=== PATIENT | female | born 1950 | race Caucasian/White ===

== ENCOUNTER 2019-05-19 12:15 | Emergency (ER) | payer BC, MEDICAID ==
[~2019-05-19] VITALS: Ht 157.5 cm; Wt 75.0 kg
[2019-05-19 12:22] VITALS: BP 110/76
[2019-05-19] MEDS ORDERED: NACL 0.9% 500 ML IV ONE (14:00)
[2019-05-19 14:51] LABS: ANION GAP 12.5 (8-16); CARBON DIOXIDE 28.2 mmol/L (21-32); CREATININE 0.8 mg/dL (0.6-1.3); POTASSIUM 3.7 mmol/L (3.5-5.1)
[2019-05-19 14:52] LABS: BASOPHILS % (AUTO) 0.9 % (0.0-2.0); EOSINOPHILS # (AUTO) 0.2 K/uL (0-0.4); EOSINOPHILS % (AUTO) 3.9 % (0.0-4.0); HEMATOCRIT 37.7 % (36-48); HEMOGLOBIN 12.2 g/dL (12.0-16.0); LYMPHOCYTES % (AUTO) 18.3 % (20.5-51.1); MEAN CORPUSCULAR HEMOGLOBIN 29 pg (27-31); MEAN CORPUSCULAR HGB CONC 32 g/dL (33-37); MEAN CORPUSCULAR VOLUME 89.3 fL (80-94); MONOCYTES # (AUTO) 0.3 K/uL (0.8-1.0); MONOCYTES % (AUTO) 6.2 % (1.7-9.3); NEUTROPHILS # (AUTO) 3.9 K/uL (1.8-7.7); NEUTROPHILS % (AUTO) 70.7 % (42.2-75.2); PLATELET COUNT (AUTO) 166 K/uL (140-450); RED BLOOD CELL COUNT(AUTO) 4.22 MIL/uL (4.20-5.40); RED CELL DISTRIBUTION WIDTH 14.1 % (11.6-13.7); WHITE BLOOD COUNT (AUTO) 5.5 K/uL (4.8-10.8)
[2019-05-19 15:05] LABS: ALBUMIN 3.8 g/dL (3.4-5.0); TOTAL BILIRUBIN 0.7 mg/dL (0.0-1.0)
[2019-05-19 15:08] VITALS: BP 120/79
== END 2019-05-19 15:08 | disposition home or self-care (01) ==
LOC: MED 12:15
DX: R10.84 Generalized abdominal pain (principal); I10 Essential (primary) hypertension; M79.10 Myalgia, unspecified site; Z88.0 Allergy status to penicillin; Z85.43 Personal history of malignant neoplasm of ovary
CPT/HCPCS: 36415; 74022; 80053; 85025; 99284; J7030

== ENCOUNTER 2019-06-16 13:15 | Emergency (ER) | payer BC, MEDICAID ==
[~2019-06-16] VITALS: Ht 154.9 cm; Wt 74.5 kg
[2019-06-16 13:17] VITALS: BP 150/85
--- NOTE | 2019-06-16 13:30 | NUR ---
PT AMB TO BED 8.
--- NOTE | 2019-06-16 13:33 | NUR ---
PA Grier evaluating patient at bedside.
--- NOTE | 2019-06-16 13:37 | NUR ---
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 L THUMB NAIL IS SLIGHTLY DETACHED WITH BLEEDING THAT HAS CLOTTED, +CMS. PT AWAKE AND ALERT, SKIN NORMAL COLOR WARM AND DRY, RR EVEN AND UNLABORED. DENIES KNOWN MED HX, DENIES RX.
[2019-06-16] MEDS ORDERED: LIDOCAINE MPF 1% 10 MG/ML VIAL INJ ONE (13:40)
[2019-06-16] MEDS ORDERED: ONDANSETRON 4 MG ODT PO ONE (13:40)
[2019-06-16] MEDS ORDERED: HYDROcodone/APAP 5/325 MG 1 TAB TAB PO ONE (13:40)
[2019-06-16] MEDS ORDERED: LIDOCAINE MPF 1% 5 ML ONE (13:50)
--- NOTE | 2019-06-16 14:47 | NUR ---
APPLIED DRESSING TO LEFT THUMB WITHOUT ANY ISSUES
[2019-06-16 14:51] VITALS: BP 130/79
--- NOTE | 2019-06-16 14:51 | NUR ---
Patient discharged with v/s stable. Written and verbal after care instructions given and explained. Patient alert, oriented and verbalized understanding of instructions. Ambulatory with steady gait with cane. All questions addressed prior to discharge. ID band removed. Patient advised to follow up with PMD. Rx of IBUPROFEN, NORCO given. Patient educated on indication of medication including possible reaction and side effects. Opportunity to ask questions provided and answered.
== END 2019-06-16 14:51 | disposition home or self-care (01) ==
LOC: MED 13:15
DX: S61.102A Unspecified open wound of left thumb with damage to nail, initial encounter (principal); I10 Essential (primary) hypertension; Z88.0 Allergy status to penicillin; W22.8XXA Striking against or struck by other objects, initial encounter; Y93.89 Activity, other specified; Y92.89 Other specified places as the place of occurrence of the external cause; Y99.8 Other external cause status
CPT/HCPCS: 11730; 99283; J2001; Q0162; 99284

== ENCOUNTER 2019-06-20 13:00 | Emergency (ER) | payer BC, MEDICAID ==
[~2019-06-20] VITALS: Ht 154.9 cm; Wt 74.4 kg
[2019-06-20 13:11] VITALS: BP 112/62
--- NOTE | 2019-06-20 13:16 | NUR ---
PT TO BED 5 WITH STEADY GAIT
--- NOTE | 2019-06-20 13:45 | NUR ---
PT BIB DAUGHTER FOR DOG BITE TO LEFT ANKLE. PT STATES SHE WAS WALKING HOME FROM CLINIC AT 9AM TODAY AND RANDOM DOG BITE HER LEG. LACTERION NOTED TO ANKLE, NO ACTIVE BLEEDING. PT IN NO ACUTE DISTRESS SITTING IN BED.
[2019-06-20] MEDS ORDERED: BACITRACIN OINT 500 UNITS/GM PKT TP ONE (14:00)
[2019-06-20 14:26] VITALS: BP 112/62
== END 2019-06-20 14:31 | disposition home or self-care (01) ==
LOC: MED 13:00
DX: S91.052A Open bite, left ankle, initial encounter (principal); I10 Essential (primary) hypertension; Z88.0 Allergy status to penicillin; W54.0XXA Bitten by dog, initial encounter; Y93.89 Activity, other specified; Y92.89 Other specified places as the place of occurrence of the external cause; Y99.8 Other external cause status
CPT/HCPCS: 90471; 90715; 99283

== ENCOUNTER 2020-05-10 17:39 | Emergency (ER) | payer BC, MEDICAID ==
[~2020-05-10] VITALS: Ht 154.9 cm; Wt 73.5 kg
[2020-05-10 17:50] VITALS: BP 119/73
--- NOTE | 2020-05-10 17:55 | NUR ---
PT TAKEN TO ER BED 08
--- NOTE | 2020-05-10 18:00 | NUR ---
COVID SWAB PERFORMED AT BEDSIDE AND WALKED TO LAB
[2020-05-10] MEDS ORDERED: KETOROLAC 30 MG/ML VIAL IM ONE (18:10)
--- NOTE | 2020-05-10 18:28 | NUR ---
70 Y/O FEMALE C/O COUGH/ FEVER AND CHILLS S/P COVID EXPOSURE 1 WEEK AGO. RESP EVEN AND UNLABORED. PT DENIES ANY SOB OR CHEST PAIN. AAOX4. AMBULATORY WITH STEADY GAIT. PT IS AFEBRILE AT THIS TIME. LUNG SOUNDS CLEAR IN BILAT LOBES. NO N/V/D AT THIS TIME.
--- NOTE | 2020-05-10 18:39 | NUR ---
X-Ray at bedside.
[2020-05-10 19:02] VITALS: BP 119/73
--- NOTE | 2020-05-10 19:02 | NUR ---
Patient discharged with v/s stable. Written and verbal after care instructions given and explained. Patient alert, oriented and verbalized understanding of instructions. Ambulatory with steady gait. All questions addressed prior to discharge. ID band removed. Patient advised to follow up with PMD. Rx of PROMETHAZINE, TYLENOL given. Patient educated on indication of medication including possible reaction and side effects. Opportunity to ask questions provided and answered.
--- NOTE | 2020-05-11 23:00 | NUR ---
Covid results received from lab. Results are POSITIVE. Hard copy requested from lab and placed in infection controls mailbox.
== END 2020-05-10 19:02 | disposition home or self-care (01) ==
LOC: MED 17:39
DX: R50.9 Fever, unspecified (principal); Z20.828 Contact with and (suspected) exposure to other viral communicable diseases; M79.10 Myalgia, unspecified site; R05 Cough; I10 Essential (primary) hypertension; Z88.0 Allergy status to penicillin; Z98.890 Other specified postprocedural states; Z85.43 Personal history of malignant neoplasm of ovary
CPT/HCPCS: 71045; 81002; 96372; 99284; J1885; Q0092; U0003

== ENCOUNTER 2021-07-20 20:47 | Inpatient (IN) | payer OTHER, MEDICAID, SELFPAY ==
[~2021-07-20] VITALS: Ht 154.9 cm; Wt 71.7 kg
[2021-07-20 21:00] VITALS: BP 132/67
--- NOTE | 2021-07-20 21:03 | NUR ---
to lobby a/w bed ambulatory
[2021-07-20 23:07] LABS: BASOPHILS % (AUTO) 0.7 % (0.0-2.0); EOSINOPHILS # (AUTO) 0.1 K/uL (0-0.4); EOSINOPHILS % (AUTO) 2.5 % (0.0-4.0); HEMATOCRIT 37.2 % (36-48); HEMOGLOBIN 12.5 g/dL (12.0-16.0); LYMPHOCYTES # (AUTO) 1.1 K/uL (2.5-16.5); LYMPHOCYTES % (AUTO) 22.7 % (20.5-51.1); MEAN CORPUSCULAR HEMOGLOBIN 29 pg (27-31); MEAN CORPUSCULAR HGB CONC 34 g/dL (33-37); MEAN CORPUSCULAR VOLUME 87.3 fL (80-94); MONOCYTES # (AUTO) 0.4 K/uL (0.8-1.0); MONOCYTES % (AUTO) 8.3 % (1.7-9.3); NEUTROPHILS # (AUTO) 3.2 K/uL (1.8-7.7); NEUTROPHILS % (AUTO) 65.8 % (42.2-75.2); PLATELET COUNT (AUTO) 193 K/uL (140-450); RED BLOOD CELL COUNT(AUTO) 4.27 MIL/uL (4.20-5.40); RED CELL DISTRIBUTION WIDTH 13.7 % (11.6-13.7); WHITE BLOOD COUNT (AUTO) 4.8 K/uL (4.8-10.8)
--- NOTE | 2021-07-20 23:07 | NUR ---
PT TAKEN TO BED 5
--- NOTE | 2021-07-20 23:10 | NUR ---
RECEIVED IN BED 5 WITH C/O LOWER ABDOMINAL PAIN WITH NAUSEA AND DIARRHEA X 5 DAYS. UNABLE TO GIVE UA AT THIS TIME
[2021-07-20 23:34] LABS: ASPARTATE AMINOTRANSFERASE 24 U/L (15-37); CARBON DIOXIDE 24.1 mmol/L (21-32); CHLORIDE 105 mmol/L (98-107); CREATININE 0.9 mg/dL (0.6-1.3); GLUCOSE 109 mg/dL (74-106); LIPASE 112 U/L (73-393); POTASSIUM 4.1 mmol/L (3.5-5.1); SODIUM SERUM 140 mmol/L (136-145); TOTAL BILIRUBIN 0.6 mg/dL (0.0-1.0); UREA NITROGEN, BLOOD 24 mg/dL (7-18)
[2021-07-21] MEDS ORDERED: MORPHINE SULFATE 4 MG/ML SYR IVP ONE (00:15)
[2021-07-21] MEDS ORDERED: ONDANSETRON 4 MG/2 ML VIAL IVP ONE (00:15)
[2021-07-21] MEDS ORDERED: NACL 0.9% 1,000 ML IV ONE (00:15)
[2021-07-21 00:33] LABS: APPEARANCE,URINE CLEAR (CLEAR); BILIRUBIN,URINE NEGATIVE (NEGATIVE); BLOOD, URINE NEGATIVE (NEGATIVE); COLOR,URINE YELLOW (YELLOW); LEUKOCYTE ESTERASE ,URINE NEGATIVE (NEGATIVE); NITRITE, URINE NEGATIVE (NEGATIVE); UGLUCOSE NEGATIVE (NEGATIVE)
--- NOTE | 2021-07-21 00:59 | NUR ---
PT TAKEN TO CT
--- NOTE | 2021-07-21 01:08 | NUR ---
PT RETURN FROM CT
--- NOTE | 2021-07-21 01:30 | NUR ---
RESTING MORE COMFORTABLY AT PRESENT
--- NOTE | 2021-07-21 02:40 | NUR ---
Note [email or web address] in EDM - 07/21/21 at 0342 by PAN Patient discharged with v/s stable. Written and verbal after care instructions given and explained. Patient alert, oriented and verbalized understanding of instructions. Ambulatory with steady gait. All questions addressed prior to discharge. ID band removed. Patient advised to follow up with PMD. Rx of NORETHINDRONE given. Patient educated on indication of medication including possible reaction and side effects. Opportunity to ask questions provided and answered.
--- NOTE | 2021-07-21 03:42 | NUR ---
CAS SWABBED AND COLLECTED AN DSENT TO LAB.
[2021-07-21] MEDS ORDERED: LOPERAMIDE 2 MG CAP PO ONE (03:50)
--- NOTE | 2021-07-21 04:00 | NUR ---
IV INFILTRATED AND D/C'D. PT WITH POOR VENOUS ACCESS. ATTEMPT X 2 TO REESTABLISH
[2021-07-21] MEDS ORDERED: ONDANSETRON 4 MG/2 ML VIAL IVP PRN (04:25)
--- NOTE | 2021-07-21 06:20 | NUR ---
22G SL ESTABLISHED LEFT WRIST.
--- NOTE | 2021-07-21 07:30 | NUR ---
RECEIVED REPORT FROM CHELI BOWDEN. ASSUMED CARE AT THIS TIME.
[2021-07-21] MEDS: DEXT 5% / NACL 0.9% 1,000 ML IV SCH ×3 (07:34→23:10)
[2021-07-21] MEDS ORDERED: ONDANSETRON 4 MG/2 ML VIAL IM/IVP PRN (08:55)
[2021-07-21] MEDS ORDERED: ACETAMINOPHEN 325 MG TAB PO PRN (08:55)
[2021-07-21] MEDS ORDERED: HYDROcodone/APAP 7.5/325 MG 1 TAB PO PRN (08:55)
[2021-07-21] MEDS ORDERED: DOCUSATE SODIUM 100 MG GELCAP PO PRN (08:55)
[2021-07-21] MEDS ORDERED: ZOLPIDEM 5 MG TAB PO PRN (08:55)
[2021-07-21] MEDS ORDERED: guaiFENesin DM 200/20 MG-10 ML 10 ML UDC PO PRN (08:55)
[2021-07-21] MEDS ORDERED: POTASSIUM CHLORIDE 10 MEQ TABER PO PRN (08:55)
[2021-07-21] MEDS ORDERED: LOPERAMIDE 2 MG CAP PO PRN (09:00)
--- NOTE | 2021-07-21 09:00 | NUR ---
PATIENT SUPPLIED WITH BREAKFAST TRAY, PATIENT SITTING UP IN BED EATING.
[2021-07-21] MEDS: PANTOPRAZOLE 40 MG TABEC PO SCH (09:39)
[2021-07-21] MEDS: LEVOFLOXACIN 500 MG/D5W PREMIX 100 ML IV SCH (09:39)
--- NOTE | 2021-07-21 09:45 | NUR ---
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 WILL CONTINUE TO MONITOR.
--- NOTE | 2021-07-21 10:25 | NUR ---
22G IV IN RIGHT WRIST ESTABLISHED BY PM NURSE INFILTRATED, IV REMOVED, NEW IV PLACED BY CHELI GIFFORD.
--- NOTE | 2021-07-21 10:53 | NUR ---
Patient will be admitted to care of DR. HARPER. Admited to Med/Surg. Will go to room 112B. Belongings list completed. Report to OLIVER.
--- NOTE | 2021-07-21 11:21 | NUR ---
PATIENT TRANSFERRED FROM ED VIA GURNEY. PATIENT'S DAUGHTER WITH HER. PT. ALERT ORIENTED X4 ,[place] SPEAKING. RESP. NORMAL ON ROOM AIR. WAS ADMITTED IN ER FOR C/O DIARRHEA /NAUSEA. X 5DAYS . CURRENTLY PATIENT STABLE AND NO BM SINCE YESTERDAY. ADMISSION ASSESSMENT DONE AND HISTORY OBTAINED WITH THE HELP OF DAUGHTER SINCE PATIENT SPEAKS [place] ONLY. PATIENT HAS PIV ON RJ 18 G.. ATTENDED ALL NEEDS. ALL SAFETY MEASURES PROVIDED BED IN LOW POSITION, CALL LIGHT WITHIN REACH. CLOSELY MONITORING THE PATIENT.
[2021-07-21 11:45] LABS: PROTHROMBIN TIME 9.9 secs (10.8-13.4)
[2021-07-21 11:48] LABS: CHOL/HDL RATIO 3.1 (1-4.5); FREE T4 (FREE THYROXINE) 1.24 ng/dL (0.76-1.46); MAGNESIUM 1.9 mg/dL (1.8-2.4); PHOSPHORUS 3.3 mg/dL (2.5-4.9); THYROID STIMULATING HORMONE 1.4 uIU/mL (0.34-3.74)
--- NOTE | 2021-07-21 13:30 | NUR ---
PATIENT SITTING IN THE BED WATCHING TV WITH DAUGHTER SHARI AT BEDSIDE. BREATHING NORMAL AND UNLABORED ON ROOM AIR. V/S WNL. ALL SAFETY MEASURES IN PLACED. WILL CONTINUE TO MONITOR THE PATIENT.
--- NOTE | 2021-07-21 14:19 | NUR ---
PATIENT HAS BEEN SCREENED AND CATEGORIZED HIGH NUTRITION RISK. PATIENT WILL BE SEEN WITHIN 1-2 DAYS OF ADMISSION. 07/21/21-07/22/21 REFERRAL RECEIVED FOR NAUSEA, VOMITING AND DIARRHEA OVER [address]
--- NOTE | 2021-07-21 15:30 | NUR ---
MADE ROUND AND CHECKED ON PATIENT. RESTING IN BED AND TALKING ON PHONE WITH FAMILY. DENIED ANY PAIN OR DISCOMFORT. STABLE AND NOT IN DISTRESS. ASK FOR BOWEL MOVEMENT. NO BM AT THIS TIME. STOOL SPECIMEN HAS TO COLLECT FOR C DIFF. WILL FOLLOW UP . ALL SAFETY MEASURES IN PLACED. WILL CONTINUE TO MONITOR THE PATIENT.
[2021-07-21 16:00] VITALS: BP 117/73
--- NOTE | 2021-07-21 17:21 | NUR ---
SPOKE WITH PTS DAUGHTERS REGARDING PTS CURRENT STATUS. ANSWERED ALL OF THE PTS DAUGHTERS QUESTIONS. ROOM PHONE PLACED IN PTS ROOM. ALL SAFETY MEASURES IN PLACE, CALL LIGHT WITHIN REACH. WILL CONTINUE TO MONITOR.
--- NOTE | 2021-07-21 18:10 | NUR ---
MADE ROUND AND CHECKED ON PATIENT. ALERT AND AWAKE, BREATHING EVEN AND UNLABORED ON ROOM AIR. NO BM NOTED DURING SHIFT. WIIL ENDORSE TO PM SHIFT RN TO COLLECT STOOL FOR C DIFF. WHEN PT. HAS BM. ALL SAFETY MEASURES APPLIED. CALL LIGHT WITHIN REACH. CONTINUE MONITORING THE PATIENT.
--- NOTE | 2021-07-21 19:00 | NUR ---
PATIENT REMAINED STABLE DURING SHIFT, VSS, ALL SAFETY MEASURES IN PLACED, CALL LIGHT WITHIN REACH. PATIENT WILL BE ENDORSED TO PM SHIFT CHELI DAVILA.
--- NOTE | 2021-07-21 19:35 | NUR ---
RECEIVED REPORT FROM DAYSHIFT RN AT BEDSIDE FOR CONTINUITY OF CARE. PATIENT AMBULATING IN ROOM ALERT AND ORIENTED NO ACUTE DISTRESS.
[2021-07-21 20:00] VITALS: BP 130/60
--- NOTE | 2021-07-21 20:00 | NUR ---
PT ALERT AND ORIENTED O2 ON RM AIR. VS: 130/60 P- 58 R-18 T-97.2 O2 SAT 99% ALL REQUESTED NEEDS ATTENDED. PT HAS A REJ INTACT RUNNING D5NS @100ML/HR. ALOL UNIVERSAL PRECAUTIONS IN PLACE.
--- NOTE | 2021-07-21 22:30 | NUR ---
IV FLUIDS REPLACED AND RUNNING ORDERED. REQUESTED AMBIEN GIVEN FOR INSOMNIA.
--- NOTE | 2021-07-22 00:30 | NUR ---
PT IN BED ASLEEP FLUIDS RUNNING ORDERED AND ALL UNIVERSAL FALLS PRECAUTIONS IN PLACE.
--- NOTE | 2021-07-22 03:00 | NUR ---
PT UP TO TOILET AND BACK WITH STEADY GAIT. NO C/O VOICED. ALL UNIVERSAL FALLS PRECAUTIONS IN PLACE.
[2021-07-22 04:00] VITALS: BP 144/65
--- NOTE | 2021-07-22 06:00 | NUR ---
ROUNDS DONE, PT IN BED ON ROOM AIR FLUIDS RUNNING ORDERED. NO C/O VOICED ALL UNIVERSAL FALLS PRECAUTIONS IN PLACE.
[2021-07-22 07:03] LABS: ANION GAP 12.3 (8-16); CARBON DIOXIDE 25.3 mmol/L (21-32); CHLORIDE 112 mmol/L (98-107); CREATININE 0.9 mg/dL (0.6-1.3); GLUCOSE 110 mg/dL (74-106); POTASSIUM 3.6 mmol/L (3.5-5.1); SODIUM SERUM 146 mmol/L (136-145); UREA NITROGEN, BLOOD 11 mg/dL (7-18)
[2021-07-22 07:14] LABS: BASOPHILS % (AUTO) 0.7 % (0.0-2.0); EOSINOPHILS # (AUTO) 0.2 K/uL (0-0.4); EOSINOPHILS % (AUTO) 5.6 % (0.0-4.0); HEMATOCRIT 32.9 % (36-48); HEMOGLOBIN 11.1 g/dL (12.0-16.0); LYMPHOCYTES # (AUTO) 0.8 K/uL (2.5-16.5); LYMPHOCYTES % (AUTO) 27.7 % (20.5-51.1); MEAN CORPUSCULAR HEMOGLOBIN 29 pg (27-31); MEAN CORPUSCULAR HGB CONC 34 g/dL (33-37); MEAN CORPUSCULAR VOLUME 87.5 fL (80-94); MONOCYTES # (AUTO) 0.3 K/uL (0.8-1.0); MONOCYTES % (AUTO) 9.2 % (1.7-9.3); NEUTROPHILS # (AUTO) 1.7 K/uL (1.8-7.7); NEUTROPHILS % (AUTO) 56.8 % (42.2-75.2); PLATELET COUNT (AUTO) 141 K/uL (140-450); RED BLOOD CELL COUNT(AUTO) 3.76 MIL/uL (4.20-5.40); RED CELL DISTRIBUTION WIDTH 13.6 % (11.6-13.7)
--- NOTE | 2021-07-22 07:34 | NUR ---
HANDOFF RECEIVED FROM PM SHIFT RN FOR CONTINUITY CARE, PATIENT RESTING IN THE BED,ALERT AND AWAKE , NOT IN DISTRESS OR SOB NOTED ON ROOM AIR. ALL SAFETY MEASURES IN PLACED. WILL CONTINUE TO MONITOR THE PATIENT.
[2021-07-22 08:00] VITALS: BP 122/54
[2021-07-22] MEDS: DEXT 5% / NACL 0.9% 1,000 ML IV SCH ×2 (09:29→20:39)
[2021-07-22] MEDS: LEVOFLOXACIN 500 MG/D5W PREMIX 100 ML IV SCH (09:29)
[2021-07-22] MEDS: PANTOPRAZOLE 40 MG TABEC PO SCH (09:29)
--- NOTE | 2021-07-22 09:30 | NUR ---
ADMINISTERED MEDICATION AND ABX DUE . PATIENT TOLERATED WELL. PATIENT STANDING AT BEDSIDE. ALERT AND ORIENTED X4. NORMAL BREATHING .PATIENT HAS BM X1 NOW. IS SOFT ,FORMED AND SMALL AMOUNT. NO DIARRHEA/NAUSEA OR VOMITING OR ABDOMINAL PAIN AT THIS TIME.
--- NOTE | 2021-07-22 09:37 | NUR ---
STOOL HAS BEEN COLLECTED PER MD ORDER.
--- NOTE | 2021-07-22 12:46 | NUR ---
ROUNDED TO THE PATIENT'S ROOM . PATIENT SITTING IN THE BED. JUST FINISHED LUNCH. TOLERATING FOOD.. NO C/O NAUSEA OR VOMITING OR ABDOMENINAL PAIN AT THIS TIME. ALL SAFETY MEASURES IN PLACED. WILL CONTINUE TO MONITOR THE PATIENT.
--- NOTE | 2021-07-22 14:58 | NUR ---
07/22/21 RD INITIAL ASSESSMENT COMPLETED PLEASE REFER TO NUTRITION ASSESSMENT UNDER CARE ACTIVITY FOR ESTIMATED NUTRITIONAL NEEDS. 1. WHEN/IF MEDICALLY APPROPRIATE, ADVANCE TO DASH DIET 2. RECOMMEND LOW FIBER, LOW FAT DIET FOR NAUSEA AND VOMITING/DIARRHEA 3. RD TO FOLLOW-UP 7 DAYS, LOW RISK TIANA JOSE RD
--- NOTE | 2021-07-22 15:21 | NUR ---
MADE ROUND AND CHECKED ON PATIENT, RESYING,ALERT AND AWAKE. NOT IN DISTRESS. BREATHINGS NORMAL. ALL SAFETY MEASURES IN PLACED, CALL LIGHT WITHIN REACH. WILL CONTINUE TO MONITOR THE PATIENT.
--- NOTE | 2021-07-22 18:05 | NUR ---
PT IS STABLE IN BED WITH NO ACUTE S/S OF DISTRESS. ALL SAFETY MEASURES IN PLACE. CALL LIGHT WITHIN REACH. WILL CONTINUE TO MONITOR.
--- NOTE | 2021-07-22 18:53 | NUR ---
PATIENT REMAINED STABLE THROUGHOUT SHIFT ,ALL NEEDS HAVEBEEN MET, WILL ENDORSE TO PM SHIFT RN.
--- NOTE | 2021-07-22 19:10 | NUR ---
RECEIVED REPORT FROM MORNING SHIFT FOR CONTINUITY OF CARE. PATIENT IS STABLE IN BED. A&OX4 [place] SPEAKING ONLY. DENIES PAIN AT THIS TIME. NO APPARENT S/SX OF ACUTE DISTRESS. PATIENT IS ON ROOM AIR. IV SITE IS RJV PATENT/INTACT WITH D5NS AT 100 ML. SKIN IS INTACT. PLAN OF CARE AND WHITE COMMUNICATION BOARD UPDATED. BED IN LOW/LOCKED POSITION. CALL LIGHT WITHIN REACH. ENCOURAGED PATIENT TO CALL FOR ANY NEEDS/ASSISTANCE. WILL CONTINUE TO MONITOR.
--- NOTE | 2021-07-22 19:30 | NUR ---
PATIENT PLAN OF CARE DISCUSSED WITH CONRAD COTE.
[2021-07-22 20:00] VITALS: BP 142/65
--- NOTE | 2021-07-22 21:10 | NUR ---
CHECKED PATIENT. STABLE AND AWAKE IN BED. PATIENT DENIES PAIN AT THIS TIME. RESPIRATIONS EVEN AND UNLABORED. NO APPARENT S/SX OF ACUTE DISTRESS. WHITE COMMUNICATION BOARD UPDATED. ALL SAFETY MEASURES IN PLACE. CALL LIGHT WITHIN REACH. WILL CONTINUE TO MONITOR.
--- NOTE | 2021-07-22 23:10 | NUR ---
ANSWERED CALL LIGHT. PATIENT'S IV MACHINE BEEPING. FIXED PATIENT'S IV LINE. PATIENT DENIES PAIN AT THIS TIME. RESPIRATIONS EVEN AND UNLABORED. NO APPARENT S/SX OF ACUTE DISTRESS. WHITE COMMUNICATION BOARD UPDATED. ALL SAFETY MEASURES IN PLACE. CALL LIGHT WITHIN REACH. WILL CONTINUE TO MONITOR.
--- NOTE | 2021-07-23 02:10 | NUR ---
CHECKED PATIENT. STABLE AND ASLEEP IN SUPINE POSITION. HOB ELEVATED AT 45 DEGREES. CHEST RISING AND FALLING. RESPIRATIONS EVEN AND UNLABORED. NO APPARENT S/SX OF ACUTE DISTRESS. WHITE COMMUNICATION BOARD UPDATED. ALL SAFETY MEASURES IN PLACE. CALL LIGHT WITHIN REACH. WILL CONTINUE TO MONITOR.
[2021-07-23 04:00] VITALS: BP 135/70
--- NOTE | 2021-07-23 04:10 | NUR ---
ROUNDED ON PATIENT. STABLE AND ASLEEP. HOB ELEVATED AT 45 DEGREES. CHEST RISING AND FALLING. RESPIRATIONS EVEN AND UNLABORED. NO APPARENT S/SX OF ACUTE DISTRESS. WHITE COMMUNICATION BOARD UPDATED. ALL SAFETY MEASURES IN PLACE. CALL LIGHT WITHIN REACH. WILL CONTINUE TO MONITOR.
--- NOTE | 2021-07-23 06:10 | NUR ---
CHECKED PATIENT. STABLE AND ASLEEP. HOB ELEVATED AT 45 DEGREES. CHEST RISING AND FALLING. RESPIRATIONS EVEN AND UNLABORED. NO APPARENT S/SX OF ACUTE DISTRESS. WHITE COMMUNICATION BOARD UPDATED. ALL SAFETY MEASURES IN PLACE. CALL LIGHT WITHIN REACH. WILL CONTINUE TO MONITOR.
[2021-07-23] MEDS: DEXT 5% / NACL 0.9% 1,000 ML IV SCH (06:17)
[2021-07-23 06:44] LABS: BASOPHILS % (AUTO) 0.7 % (0.0-2.0); EOSINOPHILS # (AUTO) 0.2 K/uL (0-0.4); EOSINOPHILS % (AUTO) 5.8 % (0.0-4.0); HEMATOCRIT 30.9 % (36-48); HEMOGLOBIN 10.5 g/dL (12.0-16.0); LYMPHOCYTES # (AUTO) 0.8 K/uL (2.5-16.5); LYMPHOCYTES % (AUTO) 28.6 % (20.5-51.1); MEAN CORPUSCULAR HEMOGLOBIN 29 pg (27-31); MEAN CORPUSCULAR HGB CONC 34 g/dL (33-37); MEAN CORPUSCULAR VOLUME 86.7 fL (80-94); MONOCYTES # (AUTO) 0.2 K/uL (0.8-1.0); MONOCYTES % (AUTO) 7.8 % (1.7-9.3); NEUTROPHILS # (AUTO) 1.6 K/uL (1.8-7.7); NEUTROPHILS % (AUTO) 57.1 % (42.2-75.2); PLATELET COUNT (AUTO) 137 K/uL (140-450); RED BLOOD CELL COUNT(AUTO) 3.57 MIL/uL (4.20-5.40); RED CELL DISTRIBUTION WIDTH 13.6 % (11.6-13.7); WHITE BLOOD COUNT (AUTO) 2.8 K/uL (4.8-10.8)
--- NOTE | 2021-07-23 07:10 | NUR ---
ENDORSED PATIENT TO MORNING SHIFT NURSE FOR CONTINUITY CARE. PATIENT IS STABLE.
[2021-07-23 07:13] LABS: ANION GAP 15.2 (8-16); CARBON DIOXIDE 25.5 mmol/L (21-32); CHLORIDE 111 mmol/L (98-107); CREATININE 0.9 mg/dL (0.6-1.3); GLUCOSE 102 mg/dL (74-106); POTASSIUM 3.7 mmol/L (3.5-5.1); SODIUM SERUM 148 mmol/L (136-145)
[2021-07-23 07:26] LABS: UREA NITROGEN, BLOOD 7 mg/dL (7-18)
--- NOTE | 2021-07-23 07:32 | NUR ---
PATIENT DANDLING IN BED, BREATHING SYMMETRICAL AND UNLABORED. BELONGINGS WITHIN REACH BED IN LOW POSITION , ALL SAFETY MEASURES ARE IN PLACE. CALL LIGHT WITHIN REACH. NON SLIP SOCKS ON
[2021-07-23] MEDS: LEVOFLOXACIN 500 MG/D5W PREMIX 100 ML IV SCH (08:41)
[2021-07-23] MEDS: PANTOPRAZOLE 40 MG TABEC PO SCH (08:41)
--- NOTE | 2021-07-23 09:10 | NUR ---
MEDICATIONS GIVEN PER MD ORDER. PT EDUCATED AND VERBALIZED UNDERSTANDING . ALL SAFETY MEASURES IN PLACE.
--- NOTE | 2021-07-23 11:00 | NUR ---
PATIENT AMBULATING IN ROOM , PT TOLERATING WELL . PATIENT STATES SHE SUFFERS FROM PANIC ATTACKS AND WOULD PREFER TO BE HOME AT THIS TIME . GRAND DAUGHTER AT BEDSIDE. ALL SAFETY MEASURES ARE IN PLACE.
--- NOTE | 2021-07-23 11:16 | NUR ---
PATIENT GUIDED THROUGH BREATHING EXERCISES , PT STATES SHE FEELS BETTER . PT DANGLING IN CHAIR . WATCHING TV
[2021-07-23] MEDS: NACL 0.45% 500 ML IV SCH ×2 (11:45→16:45)
[2021-07-23 12:00] VITALS: BP 110/64
--- NOTE | 2021-07-23 13:25 | NUR ---
PATIENT AMBULATING IN ROOM , PT HAS NON SLIP SOCKS ON , PT TOLERATING WELL , GRANDDAUGHTER AT BEDSIDE
--- NOTE | 2021-07-23 15:55 | NUR ---
PATIENT ASISTED WITH BEDBATH PATIENT NEEDS STAND BY ASSISTANCE PT TOLERATED WELL ALL SFETY MEASURES ARE IN PLACE
--- NOTE | 2021-07-23 16:45 | NUR ---
D/C DISCHARGE INSTRUCTIONS COMPLETE , PT VERBALIZED UNDERSTANDING FOR CONTINUITY OF ARE, PT IN STABLE CONDITION , PT AMBULATED OUT OF UNIT TO PRIVATE VEHICLE ,ALL SAFETY MEASURES WERE INPLACE , IV CANULA REMOVED AND INTACT, ARM BAND REMOVED
== END 2021-07-23 17:05 | disposition home or self-care (01) | DRG 392 ==
LOC: MED 20:47 → MMU 07-21 04:23 → MTU 07-21 10:42
PROVIDERS: ADMIT Family Medicine; ATTEND Family Medicine
DX: K52.9 Noninfective gastroenteritis and colitis, unspecified (principal); E87.0 Hyperosmolality and hypernatremia; Q44.6 Cystic disease of liver; I10 Essential (primary) hypertension; E86.0 Dehydration; Z20.822 Contact with and (suspected) exposure to COVID-19; Z88.0 Allergy status to penicillin; Z85.9 Personal history of malignant neoplasm, unspecified
CPT/HCPCS: 36415; 71045; 80048; 80053; 81003; 82150; 83036; 83605; 83690; 83735; 83880; 84100; 84436; 84439; 84443; 84479; 84484; 85025; 85610; 85730; 87040; 87070; 87081; 96361; 96374; 96375; 99285; J1956; J2270; J2405; Q0092

== ENCOUNTER 2021-10-18 17:28 | Emergency (ER) | payer OTHER, MEDICAID ==
[~2021-10-18] VITALS: Ht 160 cm; Wt 72.1 kg
[2021-10-18 17:39] VITALS: BP 155/82
--- NOTE | 2021-10-18 17:49 | NUR ---
71/F AMBULATED TO BED 6, C/O RIGHT THUMB PAIN S/P HITTING HAND TODAY. NAIL PARTIALLY CAME OFF, NO ACTIVE BLEEDING AT THIS TIME. MEDHX: CHOLESTEROL, GASRITIS ALLERGIES: PENICILLINS
--- NOTE | 2021-10-18 17:53 | NUR ---
DR WILHELM AT BEDSIDE FOR MSE
[2021-10-18] MEDS ORDERED: HYDROcodone/APAP 5/325 MG 1 TAB TAB PO ONE (17:55)
[2021-10-18] MEDS ORDERED: BACITRACIN OINT 500 UNITS/GM PKT TP ONE (18:00)
[2021-10-18 18:30] VITALS: BP 155/82
--- NOTE | 2021-10-18 18:30 | NUR ---
APPLIED BACITRACIN TO PT'S WOUND, WRAPPEDWITH NON-ADHERANT AND 1" GAUZE ROLL.
--- NOTE | 2021-10-18 18:30 | NUR ---
Patient discharged with v/s stable. Written and verbal after care instructions given and explained. Patient verbalized understanding. Ambulatory with steady gait. All questions addressed prior to discharge. Advised to follow up with PMD.
== END 2021-10-18 18:30 | disposition home or self-care (01) ==
LOC: MED 17:28
DX: S61.101A Unspecified open wound of right thumb with damage to nail, initial encounter (principal); Z88.0 Allergy status to penicillin; W22.8XXA Striking against or struck by other objects, initial encounter; Y92.89 Other specified places as the place of occurrence of the external cause; Y93.89 Activity, other specified; Y99.8 Other external cause status
CPT/HCPCS: 99283

== ENCOUNTER 2022-01-21 18:17 | Emergency (ER) | payer OTHER, MEDICAID ==
[~2022-01-21] VITALS: Ht 154.9 cm; Wt 72.1 kg
[2022-01-21 18:41] VITALS: BP 143/78
--- NOTE | 2022-01-21 19:26 | NUR ---
PT TAKEN TO BED 05
[2022-01-21] MEDS ORDERED: PRED20TA5 PO (19:51)
--- NOTE | 2022-01-21 20:00 | NUR ---
71 Y/O FEMALE C/O CHEST PAIN 7/10 AND SOB X5DAYS. SPO2 PT STATES SHE TOOK RX WITH NO RELIEF. DENIES FEVER/CHILLS. DENIES N/V/D. PT STATES HE NOSE HAS BEEN BLEEDING. NEG AT HOME COVID. VITALS WNL. AOX4, NO SOB, SKIN INTACT, AND STAEDY GAIT. HX: HIGH CHOLESTORAL, GASTRITIS ALLERGIES: PCN
[2022-01-21 20:22] VITALS: BP 143/78
--- NOTE | 2022-01-21 20:22 | NUR ---
Patient discharged with v/s stable. Written and verbal after care instructions given and explained. Patient alert, oriented and verbalized understanding of instructions. Ambulatory with steady gait. All questions addressed prior to discharge. ID band removed. Patient advised to follow up with PMD. Rx of PREDNISONE given. Opportunity to ask questions provided and answered.
== END 2022-01-21 20:22 | disposition home or self-care (01) ==
LOC: MED 18:17
DX: R05.9 Cough, unspecified (principal); R07.89 Other chest pain; E11.9 Type 2 diabetes mellitus without complications; I10 Essential (primary) hypertension; Z88.0 Allergy status to penicillin; Z90.710 Acquired absence of both cervix and uterus; Z85.9 Personal history of malignant neoplasm, unspecified
CPT/HCPCS: 71045; 93005; 99283

== ENCOUNTER 2022-08-06 13:34 | Emergency (ER) | payer OTHER, MEDICAID ==
[~2022-08-06] VITALS: Ht 151.9 cm; Wt 70.5 kg
[~2022-08-06 13:34] MED LIST: PRED20TA5 PO
[2022-08-06 13:41] VITALS: BP 125/73
--- NOTE | 2022-08-06 13:47 | NUR ---
COVID, FLU SWABS DONE.
--- NOTE | 2022-08-06 13:50 | NUR ---
PT AMB TO BED 4.
--- NOTE | 2022-08-06 13:51 | NUR ---
SIDE SHOW ENTERTAINER BEDSIDE
--- NOTE | 2022-08-06 14:19 | NUR ---
72/F PRESENTS TO ED WITH C/O COUGH, HEADACHE AND NAUSEA X3 DAYS. PATIENT DENIES CP, SOB, FEVERS OR RECENT SICK CONTACTS. DENIES TAKING MEDS FOR SYMPTOMS.
--- NOTE | 2022-08-06 15:26 | NUR ---
DR. WYNN EVALUATING PATIENT BEDSIDE
[2022-08-06] MEDS ORDERED: NIRM1TAB5 PO (15:38)
[2022-08-06] MEDS ORDERED: PRED20TA5 PO (15:38)
[2022-08-06] MEDS ORDERED: ONDA8TAB87 PO (15:38)
[2022-08-06] MEDS ORDERED: IBUP-2213 PO (15:38)
--- NOTE | 2022-08-06 15:41 | NUR ---
PT AMBULATED TO CHAIR B
--- NOTE | 2022-08-06 15:51 | NUR ---
Patient discharged with v/s stable. Written and verbal after care instructions FOR NAUSEA, INFLUENZA, COVID AND COUGH given and explained. Patient alert, oriented and verbalized understanding of instructions. Ambulatory with steady gait. All questions addressed prior to discharge. ID band removed. Patient advised to follow up with PMD. Rx of IBUPROFEN,PAXLOVID, ZOFRAN AND PREDNISONE given. Opportunity to ask questions provided and answered.
== END 2022-08-06 15:51 | disposition home or self-care (01) ==
LOC: MED 13:34
DX: U07.1 COVID-19 (principal); J10.1 Influenza due to other identified influenza virus with other respiratory manifestations; R05.9 Cough, unspecified; R11.0 Nausea; R42 Dizziness and giddiness; R07.9 Chest pain, unspecified; E11.9 Type 2 diabetes mellitus without complications; I10 Essential (primary) hypertension; Z79.899 Other long term (current) drug therapy; Z88.0 Allergy status to penicillin; Z90.710 Acquired absence of both cervix and uterus
CPT/HCPCS: 71045; 87426; 87804; 99284; Q0092

== ENCOUNTER 2022-09-01 13:10 | Emergency (ER) | payer OTHER, MEDICAID ==
[~2022-09-01] VITALS: Ht 157.5 cm; Wt 71.2 kg
[~2022-09-01 13:10] MED LIST changes: +IBUP-2213 PO; +NIRM1TAB5 PO; +ONDA8TAB87 PO
[2022-09-01 13:26] VITALS: BP 124/62
--- NOTE | 2022-09-01 13:30 | NUR ---
C/O RIGHT EAR ACHE AND [id number] ALLERGY: PCN PMH: HDL
[2022-09-01] MEDS ORDERED: IBUPROFEN 600 MG TAB PO ONE (14:50)
--- NOTE | 2022-09-01 16:07 | NUR ---
eloped at this time per pa jaquez
== END 2022-09-01 16:07 | disposition left against medical advice (07) ==
LOC: MED 13:10
DX: G43.909 Migraine, unspecified, not intractable, without status migrainosus (principal); I10 Essential (primary) hypertension; E11.9 Type 2 diabetes mellitus without complications; Z79.4 Long term (current) use of insulin; Z79.899 Other long term (current) drug therapy; Z88.0 Allergy status to penicillin
CPT/HCPCS: 99282

== ENCOUNTER 2023-04-10 15:21 | Emergency (ER) | payer OTHER, MEDICAID ==
[~2023-04-10] VITALS: Ht 153.7 cm; Wt 73.5 kg
[2023-04-10 15:42] VITALS: BP 116/73; PULSE 65; RESP 16; TEMP 98.1; O2SAT 98
[2023-04-10 17:22] LABS: FLU A ANTIGEN negative (NEGATIVE); FLU B ANTIGEN NEGATIVE (NEGATIVE)
[2023-04-10] MEDS ORDERED: MORPHINE SULFATE 4 MG/ML SYR IVP ONE (17:35)
[2023-04-10] MEDS ORDERED: NACL 0.9% 1,000 ML IV ONE (17:35)
[2023-04-10] MEDS ORDERED: ONDANSETRON 4 MG/2 ML VIAL IVP ONE (17:35)
[2023-04-10 17:49] LABS: BASOPHILS % (AUTO) 0.3 % (0.0-2.0); EOSINOPHILS # (AUTO) 0.1 K/uL (0-0.4); EOSINOPHILS % (AUTO) 2.1 % (0.0-4.0); HEMATOCRIT 37.4 % (36-48); HEMOGLOBIN 12.5 g/dL (12.0-16.0); LYMPHOCYTES # (AUTO) 0.6 K/uL (2.5-16.5); LYMPHOCYTES % (AUTO) 12.5 % (20.5-51.1); MEAN CORPUSCULAR HEMOGLOBIN 29 pg (27-31); MEAN CORPUSCULAR HGB CONC 33 g/dL (33-37); MEAN CORPUSCULAR VOLUME 85.5 fL (80-94); MONOCYTES # (AUTO) 0.2 K/uL (0.8-1.0); MONOCYTES % (AUTO) 4.7 % (1.7-9.3); NEUTROPHILS # (AUTO) 3.6 K/uL (1.8-7.7); NEUTROPHILS % (AUTO) 80.4 % (42.2-75.2); PLATELET COUNT (AUTO) 145 K/uL (140-450); RED BLOOD CELL COUNT(AUTO) 4.37 MIL/uL (4.20-5.40); RED CELL DISTRIBUTION WIDTH 14.3 % (11.6-13.7); WHITE BLOOD COUNT (AUTO) 4.5 K/uL (4.8-10.8)
[2023-04-10 18:12] LABS: ALANINE AMINOTRANSFERASE 16 U/L (12-78); ALBUMIN 3.8 g/dL (3.4-5.0); ALKALINE PHOSPHATASE 127 U/L (50-136); ANION GAP 13.2 (8-16); ASPARTATE AMINOTRANSFERASE 20 U/L (15-37); CALCIUM 8.5 mg/dL (8.5-10.1); CARBON DIOXIDE 25.6 mmol/L (21-32); CHLORIDE 102 mmol/L (98-107); CREATININE 0.9 mg/dL (0.6-1.3); GLUCOSE 104 mg/dL (74-106); LIPASE 77 U/L (73-393); POTASSIUM 3.8 mmol/L (3.5-5.1); SODIUM SERUM 137 mmol/L (136-145); TOTAL BILIRUBIN 1.4 mg/dL (0.0-1.0); TOTAL PROTEIN, SERUM 7.8 g/dL (6.4-8.2); UREA NITROGEN, BLOOD 18 mg/dL (7-18)
[2023-04-10 18:33] LABS: APPEARANCE,URINE CLEAR (CLEAR); BILIRUBIN,URINE NEGATIVE (NEGATIVE); BLOOD, URINE TRACE-I (NEGATIVE); COLOR,URINE YELLOW (YELLOW); LEUKOCYTE ESTERASE ,URINE NEGATIVE (NEGATIVE); NITRITE, URINE NEGATIVE (NEGATIVE); PROTEIN,URINE NEGATIVE (NEGATIVE); UGLUCOSE NEGATIVE (NEGATIVE); UROBILINOGEN,URINE 0.2 EU/dL (0.2 - 1)
[2023-04-10] MEDS ORDERED: ONDA-188 SL (20:03)
[2023-04-10] MEDS ORDERED: FAMO-92 PO (20:03)
[2023-04-10 20:24] VITALS: BP 120/73; PULSE 64; RESP 16; TEMP 98.2; O2SAT 98
== END 2023-04-10 20:24 | disposition home or self-care (01) ==
LOC: MED 15:21
DX: K29.70 Gastritis, unspecified, without bleeding (principal); Z20.822 Contact with and (suspected) exposure to COVID-19; I10 Essential (primary) hypertension; Z88.0 Allergy status to penicillin; Z79.899 Other long term (current) drug therapy
CPT/HCPCS: 36415; 71045; 74177; 80053; 81003; 83690; 84484; 85025; 87426; 87804; 93005; 96361; 96374; 96375; 99285; J2270; J2405; J7030; Q9967

== ENCOUNTER 2024-02-23 13:24 | Emergency (ER) | payer OTHER, MEDICAID ==
[~2024-02-23] VITALS: Ht 162.6 cm; Wt 73.5 kg
[~2024-02-23 13:24] MED LIST changes: +FAMO-92 PO; +ONDA-188 SL
[2024-02-23 13:37] VITALS: BP 116/97; PULSE 78; RESP 16; TEMP 97.5; O2SAT 99
[2024-02-23] MEDS ORDERED: KETOROLAC 30 MG/ML VIAL ONE (14:04)
[2024-02-23] MEDS: KETOROLAC 30 MG/ML VIAL IM ONE (14:05)
[2024-02-23] MEDS ORDERED: LID5T TP (15:33)
[2024-02-23] MEDS ORDERED: IBUP-1842 PO (15:33)
[2024-02-23 15:57] VITALS: BP 116/97; PULSE 78; RESP 16; TEMP 97.5; O2SAT 99
== END 2024-02-23 16:00 | disposition home or self-care (01) ==
LOC: MED 13:24
DX: S46.911A Strain of unspecified muscle, fascia and tendon at shoulder and upper arm level, right arm, initial encounter (principal); S16.1XXA Strain of muscle, fascia and tendon at neck level, initial encounter; S39.012A Strain of muscle, fascia and tendon of lower back, initial encounter; M79.604 Pain in right leg; I10 Essential (primary) hypertension; Z79.899 Other long term (current) drug therapy; Z88.0 Allergy status to penicillin; X58.XXXA Exposure to other specified factors, initial encounter; Y92.89 Other specified places as the place of occurrence of the external cause; Y93.89 Activity, other specified; Y99.8 Other external cause status
CPT/HCPCS: 72040; 72110; 73030; 96372; 99284; J1885

== ENCOUNTER 2024-05-03 15:17 | Emergency (ER) | payer MEDICARE, MEDICAID ==
[~2024-05-03] VITALS: Ht 157.5 cm; Wt 73.0 kg
[~2024-05-03 15:17] MED LIST changes: +IBUP-1842 PO; +LID5T TP
[2024-05-03 16:13] VITALS: BP 96/55; PULSE 70; RESP 16; TEMP 96.8; O2SAT 99
[2024-05-03 17:05] LABS: APPEARANCE,URINE CLEAR (CLEAR); BILIRUBIN,URINE 1+ (NEGATIVE); BLOOD, URINE NEGATIVE (NEGATIVE); COLOR,URINE YELLOW (YELLOW); LEUKOCYTE ESTERASE ,URINE NEGATIVE (NEGATIVE); NITRITE, URINE NEGATIVE (NEGATIVE); PROTEIN,URINE TRACE (NEGATIVE); UGLUCOSE NEGATIVE (NEGATIVE); UROBILINOGEN,URINE 0.2 EU/dL (0.2 - 1)
[2024-05-03 17:06] LABS: BASOPHILS % (AUTO) 0.8 % (0.0-2.0); EOSINOPHILS # (AUTO) 0.2 K/uL (0-0.4); EOSINOPHILS % (AUTO) 3.9 % (0.0-4.0); HEMATOCRIT 36.9 % (36-48); HEMOGLOBIN 12.2 g/dL (12.0-16.0); LYMPHOCYTES % (AUTO) 26.5 % (20.5-51.1); MEAN CORPUSCULAR HEMOGLOBIN 29 pg (27-31); MEAN CORPUSCULAR HGB CONC 33 g/dL (33-37); MEAN CORPUSCULAR VOLUME 86.8 fL (80-94); MONOCYTES # (AUTO) 0.4 K/uL (0.8-1.0); MONOCYTES % (AUTO) 9.6 % (1.7-9.3); NEUTROPHILS # (AUTO) 2.3 K/uL (1.8-7.7); NEUTROPHILS % (AUTO) 59.2 % (42.2-75.2); PLATELET COUNT (AUTO) 166 K/uL (140-450); RED BLOOD CELL COUNT(AUTO) 4.25 MIL/uL (4.20-5.40); RED CELL DISTRIBUTION WIDTH 14.5 % (11.6-13.7); WHITE BLOOD COUNT (AUTO) 3.9 K/uL (4.8-10.8)
[2024-05-03 17:10] LABS: ICTOTEST NEGATIVE (NEGATIVE)
[2024-05-03 17:20] LABS: ANION GAP 12.9 (8-16); CALCIUM 8.5 mg/dL (8.5-10.1); CARBON DIOXIDE 27.1 mmol/L (21-32); CHLORIDE 105 mmol/L (98-107); CREATININE 1.1 mg/dL (0.6-1.3); GLUCOSE 111 mg/dL (74-106); SODIUM SERUM 141 mmol/L (136-145); UREA NITROGEN, BLOOD 25 mg/dL (7-18)
[2024-05-03 17:27] LABS: ALANINE AMINOTRANSFERASE 29 U/L (12-78); ALBUMIN 3.6 g/dL (3.4-5.0); ALKALINE PHOSPHATASE 124 U/L (50-136); ASPARTATE AMINOTRANSFERASE 23 U/L (15-37); BILIRUBIN,DIRECT 0.1 mg/dL (0.0-0.3); LIPASE 45 U/L (16-77); TOTAL BILIRUBIN 0.7 mg/dL (0.0-1.0); TOTAL PROTEIN, SERUM 7.5 g/dL (6.4-8.2)
[2024-05-03] MEDS: ONDANSETRON 4 MG/2 ML VIAL IVP ONE (17:55)
[2024-05-03] MEDS: KETOROLAC 30 MG/ML VIAL IVP ONE (17:58)
[2024-05-03] MEDS: NACL 0.9% 1,000 ML IV ONE (18:10)
[2024-05-03 18:11] VITALS: BP 133/54; PULSE 58; RESP 18
[2024-05-03 18:40] VITALS: O2SAT 99
[2024-05-03] MEDS ORDERED: ACET500T99 PO (19:13)
[2024-05-03] MEDS ORDERED: MAG355OR2 PO (19:13)
[2024-05-03] MEDS ORDERED: FAMO-90 PO (19:13)
== END 2024-05-03 19:39 | disposition home or self-care (01) ==
LOC: MED 15:17
DX: K29.70 Gastritis, unspecified, without bleeding (principal); E11.9 Type 2 diabetes mellitus without complications; I10 Essential (primary) hypertension; Z85.43 Personal history of malignant neoplasm of ovary; Z79.899 Other long term (current) drug therapy; Z79.01 Long term (current) use of anticoagulants; Z90.710 Acquired absence of both cervix and uterus; Z88.0 Allergy status to penicillin
CPT/HCPCS: 36415; 74176; 80048; 80076; 81003; 83690; 83880; 84484; 85025; 93005; 96361; 96374; 96375; 99285; J1885; J2405; J7030